=== PATIENT | female | born 1965 | race Caucasian/White ===

== ENCOUNTER 2018-10-18 22:44 | Emergency (ER) | payer OTHER ==
[~2018-10-18] VITALS: Ht 157.5 cm; Wt 63.5 kg
== END 2018-10-19 00:03 | disposition home or self-care (01) ==
LOC: ER 22:44
DX: S61.022A Laceration with foreign body of left thumb without damage to nail, initial encounter (principal); X58.XXXA Exposure to other specified factors, initial encounter; Y93.89 Activity, other specified; Y92.810 Car as the place of occurrence of the external cause; Y99.8 Other external cause status

== ENCOUNTER 2018-11-01 08:27 | Emergency (ER) | payer OTHER ==
[~2018-11-01] VITALS: Ht 157.5 cm; Wt 65.8 kg
== END 2018-11-01 09:04 | disposition home or self-care (01) ==
LOC: ER 08:27
DX: Z48.02 Encounter for removal of sutures (principal)